=== PATIENT | male | born 1960 | race Hispanic/Latino ===

== ENCOUNTER 2025-04-25 19:52 | Emergency (ER) | payer OTHER ==
[~2025-04-25] VITALS: Ht 175.3 cm; Wt 72.6 kg
--- NOTE | 2025-04-25 20:24 | ERN ---
General Chief Complaint: Mechanical Fall Stated Complaint: FELL FROM TREE/ LT HIP Time Seen by MD: 19:55 Source: patient, family History of Present Illness Initial Comments Patient was working on a tree using a step ladder when the step ladder dislodged and he fell onto the left side of his body. He is complaining of pain to his left buttocks and left groin area. No past medical history except for a hypercholesterolemia. Timing/Duration: 1 hour Allergies: Coded Allergies: No Known Allergies (Unverified Allergy, Unknown, 04/25/25) Past Medical History Past Medical History: No Pertinent History, High Cholesterol Past Surgical History: Other Surgical History Other: LEFT WRIST Constitutional: (-) chills, (-) diaphoresis, (-) fever, (-) malaise, (-) weakness, (-) other documentation EENTM: (-) eye pain, (-) blurred vision, (-) tearing, (-) double vision, (-) ear pain, (-) ear discharge, (-) nose pain, (-) nose congestion, (-) throat pain, (-) Throat swelling, (-) mouth pain, (-) tooth pain, (-) mouth swelling, (-) other documentation Respiratory: (-) cough, (-) orthopnea, (-) short of breath, (-) stridor, (-) wheezing, (-) other documentation Cardiovascular: (-) chest pain, (-) edema, (-) palpitations, (-) syncope, (-) dyspnea on exertion, (-) other documentation Gastrointestinal/Abdominal: (-) nausea, (-) vomiting, (-) diarrhea, (-) abdominal pain, (-) abdominal distention, (-) constipation, (-) rectal bleeding, (-) dark stool/melena, (-) other documentation Musculoskeletal: (-) Neck pain, (-) back pain, (-) Flank Pain, (-) joint pain, (-) joint swelling, (-) muscle pain, (-) muscle stiffness, (-) gout, (-) other documentation Skin: (-) laceration, (-) contusion, (-) abrasion, (-) abscess, (-) rash, (-) change in color, (-) change in hair, (-) change in nails, (-) diaphoresis, (-) dryness, (-) other documentation Neuro: (-) altered mental status, (-) headache, (-) syncope, (-) paralysis, (-) numbness, (-) seizure, (-) pre-existing deficit, (-) tremors, (-) weakness, (-) dizziness, (-) slurred speech, (-) vertigo, (-) other documentation Physical Exam General Appearance: (+) mild distress Orientation: (+) alert, (+) oriented x 3 Head/Face Trauma: No Eye: bilateral eye normal inspection, bilateral eye PERRL, bilateral eye EOMI Extremities Comment No visible deformities swelling or ecchymosis on the patient's left hip buttocks or anterior medial thigh. Only areas of tenderness are the patient's groin area. I can gently flex his thigh with no pain but any abduction results in severe pain in the patient's groin area. On exam Patient does not have any evidence of a left inguinal hernia. No scrotal swelling tenderness or epididymitis. Results Laboratory and Microbiology Lab and Micro Result Laboratory Tests Test 04/25/25 20:37 Sodium Level 145 mmol/L (136-145) Potassium Level 4.4 mmol/L (3.5-5.1) Chloride Level 109 mmol/L (101-111) Carbon Dioxide Level 28 mmol/L (21-32) Blood Urea Nitrogen 23 mg/dL (7-18) H Creatinine 1.4 mg/dL (0.5-1.3) H Glomerular Filtration Rate Calc 56 mL/min (>90) Random Glucose 158 mg/dL (70-105) H Total Calcium 10.2 mg/dL (8.5-10.1) H MDM Patient had a 6 ft fall landing on the left side of his body comes in complaining of left buttocks pain and left groin pain. He surprisingly does not have pain with passive flexion of his thigh. He does have tenderness in his medial groin area. All of the suggests a soft tissue injury; however, I will start the workup with a simple plain films and go from there patient very well might need a CT scan for torn muscle. Patient's plain films are negative for any fractures patient's CT scan of his thigh is also negative for any obvious muscle contusions tears hematomas or fractures. On re-examining the patient he says his pain is better. He no longer has tenderness in his left groin. His only pain now is when he moves his left thigh. I explained to the patient that all of the studies are negative. No fractures no obvious torn muscles. I recommend the patient continue to ambulate with crutches I will give him some muscle relaxant and he needs to follow up with his primary care physician. It is obvious he has some kind of a soft tissue injury but nothing dramatic or obvious on CT or plain film or exam. ED Course Orders Procedure Category Date Status Time Hip Unilat 2-3vw Left RAD 04/25/25 Resulted 19:58 Basic Metabolic Panel LAB 04/25/25 Complete 20:25 Cyclobenzaprine Hcl PHA 04/25/25 Complete (Cyclobenzaprine Hcl 20:30 Ketorolac PHA 04/25/25 Complete Tromethamine 30mg/Ml 20:30 Lactated Ringers PHA 04/25/25 Complete 1000ml (Lactated 21:03 Iohexol (Omnipaque) PHA 04/25/25 Complete 21:36 Ct Pelvis W/Wo CT 04/25/25 Resulted Contrast 21:03 Morphine 2mg Syg PHA 04/25/25 Complete (Morphine 2mg Syg) 22:30 Current Medications Medications (Trade) Dose Ordered Sig/Berta Route PRN Reason Start Time Stop Time Status Last Admin Dose Admin Cyclobenzaprine HCl (Cyclobenzaprine HCl) 10 mg ONCE ONCE PO 04/25/25 20:30 04/25/25 20:31 DC 04/25/25 20:41 Iohexol (Omnipaque) 75 ml STK-MED ONCE IV 04/25/25 21:36 04/25/25 21:36 DC Ketorolac Tromethamine (toRADol) 30 mg ONCE ONCE IVP 04/25/25 20:30 04/25/25 20:31 DC 04/25/25 20:40 Lactated Ringer's (Lactated Ringers 1000ml) 1,000 ml BOLUS STAT IV 04/25/25 21:03 04/25/25 21:07 DC 04/25/25 21:17 Morphine Sulfate (morPHINE 2MG SYG) 2 mg ONCE ONCE IVP 04/25/25 22:30 04/25/25 22:31 DC 04/25/25 22:23 Vital Signs Date Time Temp Pulse Resp B/P (MAP) Pulse Ox O2 Delivery O2 Flow Rate FiO2 04/25/25 22:55 58 15 163/82 99 Room Air* 0 21 04/25/25 21:35 67 14 150/76 99 Room Air* 0 04/25/25 20:56 55 13 168/93 99 Room Air* 0 21 04/25/25 20:17 98.8 58 13 183/95 99 Room Air* 0 21 04/25/25 19:53 98.8 63 16 175/101 100 Room Air DX & DISP Disposition: Discharge Departure Impression: Primary Impression: Injury of muscle of inguinal region Condition: Stable Scripts Cyclobenzaprine HCl (Flexeril) 10 Mg Tab 10 MG PO TID for muscle sstiffness, #14 TAB 0 Refills Prov: DAVID JULIEN MD 04/25/25 Referrals: SELF,REFERRAL (PCP) DAVID JULIEN MD Apr 25, 2025 20:24
[2025-04-25] MEDS: ketOROlac 30MG VIAL (30MG/ML) IVP ONE (20:40)
[2025-04-25] MEDS: CYCLOBENZAPRINE HCL 10 MG TABLET PO ONE (20:41)
[2025-04-25 20:52] LABS: CREATININE 1.4 mg/dL (0.5-1.3); POTASSIUM 4.4 mmol/L (3.5-5.1)
--- NOTE | 2025-04-25 21:02 | HMCIMG ---
HIP UNILAT 2-3VW LEFT CLINICAL HISTORY: fall from tree COMPARISON: None TECHNIQUE: AP pelvis and 2 views left hip images were obtained. FINDINGS: No obvious fracture or dislocation. No joint effusion. The soft tissues appear unremarkable. No radiopaque foreign bodies. IMPRESSION: No acute findings.
[2025-04-25] MEDS: LACTATED RINGERS 1000ML IV STA (21:17)
[2025-04-25] MEDS ORDERED: IOHEXOL-350 75 ML VIAL IV ONE (21:36)
[2025-04-25] MEDS: morPHINE 2 MG SYG IVP ONE (22:23)
--- NOTE | 2025-04-25 22:43 | HMCIMG ---
CT PELVIS W/WO CONTRAST HISTORY: Status post fall COMPARISON: None TECHNIQUE: Multiple sequential axial images of the pelvis were obtained from the iliac crests through symphysis pubis. Patient was not given contrast through intravenous route. Oral contrast was not given. FINDINGS: There are normal sized pelvic and inguinal lymph nodes. Fecal material seen throughout the colon. Diverticula are seen within the colon consistent with diverticulosis. No ascites is seen. Atherosclerotic changes are present. No CT evidence of acute appendicitis is seen. No displaced left acetabular fracture is seen. Adjacent soft tissue swelling is seen involving the obturator muscle. There is also avulsion fracture involving the posterior aspect of the left acetabulum. Pelvic sidewalls are symmetric bilaterally. Bladder is well distended without wall thickening. IMPRESSION: 1. Nondisplaced left acetabular fracture. Adjacent soft tissue swelling is seen of the obturator muscle. CT was performed with one or more following dose reduction techniques: automated exposure control, adjustment of the mA and kv according to patient's size, or use of a iterative reconstruction technique.
[2025-04-25] MEDS ORDERED: CYCL10TA16 PO (23:16)
--- NOTE | 2025-04-25 23:47 | NUR ---
DISCHARGE GAIT ASSESSMENT PT IS ABLE TO STAND. SHUFFLING NOTED TO WHEELCHAIR.
[2025-04-25 23:49] VITALS: BP 169/80; PULSE 60; RESP 16; TEMP 98.4; O2SAT 99
--- NOTE | 2025-04-26 10:23 | NUR ---
called and followed up with Pt; as per , Pt and Pt are at [facility] [place] seeking medical attention at this time as instructed by DR Haney.
== END 2025-04-25 23:50 | disposition home or self-care (01) ==
LOC: EDH 19:52
DX: S39.001A Unspecified injury of muscle, fascia and tendon of abdomen, initial encounter (principal); E78.00 Pure hypercholesterolemia, unspecified; W11.XXXA Fall on and from ladder, initial encounter; Y93.89 Activity, other specified; Y92.89 Other specified places as the place of occurrence of the external cause; Y99.8 Other external cause status
CPT/HCPCS: 99285; 96374; 72194; 96375; 80048; 36415; 73502; J1885; J2270; Q9967